=== PATIENT | female | born 1970 ===

== ENCOUNTER 2022-07-24 10:57 | Inpatient (IN) ==
[2022-07-24] MEDS ORDERED: IOPAMIDOL 100 ML BOTTLE IV ONE (10:58)
--- NOTE | 2022-07-24 11:00 | Emergency Department Note ---
HPI General Chief complaint: Shortness of Breath/Dyspnea Stated complaint: pneumonia Time Seen by Provider: 07/24/22 10:59 History of Present Illness HPI Narrative: Narrative: Patient is a 51-year-old female with a history of hypertension who presents to the emergency department from [facility] due to pneumonia and an elevated D- dimer. Patient states that she has had symptoms of feeling unwell, chills, cough, and shortness of breath for days. She states that when she was young she had a bad pneumonia for which she had to be admitted, so decided to be checked out. She was seen at [facility] where she was found to have a left lower lobe pneumonia and an elevated white blood cell count. She was also found to have an elevated D-dimer, so was sent to the emergency department for CT angio chest evaluation. She denies any other concerns at this time. Related Data Home Medications Medication Instructions Recorded Confirmed albuterol sulfate 90 mcg/actuation 90 mcg inhalation PRN PRN athsma 07/24/22 07/24/22 aerosol inhaler (Ventolin HFA) losartan 100 mg tablet 100 mg PO QDAY 07/24/22 07/24/22 sertraline 25 mg tablet 25 mg PO QDAY 07/24/22 07/24/22 Allergies Allergy/AdvReac Type Severity Reaction Status Date / Time Penicillins Allergy Unknown Unknown Verified 07/24/22 15:51 Review of Systems ROS ROS Narrative: Narrative: Constitutional: Reports chills; Denies fever or weakness Eyes: Denies eye pain or vision change ENT ED: Denies throat pain or rhinorrhea Cardiovascular: Reports chest pain; Denies dyspnea on exertion, orthopnea or edema Respiratory: Reports shortness of breath and cough Gastrointestinal: Denies abdominal pain, nausea, vomiting, diarrhea, constipation, hematochezia or melena Musculoskeletal: Denies back pain or myalgia Integumentary: Denies rash or lesions Neurological: Denies headache, weakness or confusion [facility] Narrative Patient History Narrative: Narrative: Medical/Surgical/Family History All Active Problems (Updated 07/24/22 @ 15:56 by Nii Landaverde MD) Pneumonia (Acute) Community acquired pneumonia (Acute) Sepsis (Acute) Exam Narrative Narrative: Narrative: General General appearance: Present alert and in no apparent distress; Absent anxious, appears intoxicated or sleepy Head Head: Present atraumatic and normocephalic Eye Eye: Present EOMI; Absent scleral icterus or nystagmus ENT ENT: Present mucous membranes moist; Absent nasal congestion Neck Neck: Present full ROM; Absent tenderness Chest Chest: Present normal inspection and symmetric chest wall rise; Absent tenderness Respiratory Respiratory: Present decreased breath sounds (Left lower lung field); Absent respiratory distress, rales/crackles, wheezes, stridor or accessory muscle use Cardiovascular Cardiovascular: Present normal rhythm, tachycardia and normal heart sounds Adbominal Abdominal: Present soft; Absent distention Extremities Extremities: Present normal inspection and full ROM; Absent tenderness, pedal edema or pretibial edema Back Back: Present normal inspection and full ROM Neurological Neurological: Present alert, oriented X3 and reflexes normal Psychiatric Psychiatric: Present normal affect and normal mood Skin Skin: Present warm (WNL), dry and normal color Course Vital Signs Vital signs: Vital Signs Temperature 98.6 F 07/24/22 10:59 Pulse Rate 98 H 07/24/22 10:59 Respiratory Rate 22 07/24/22 10:59 Blood Pressure 96/62 07/24/22 10:59 Pulse Oximetry (%) 98 07/24/22 10:59 Oxygen Delivery Method Room Air 07/24/22 10:59 Temperature 98.6 F 07/24/22 10:59 Pulse Rate 111 H 07/24/22 15:30 Respiratory Rate 18 07/24/22 15:01 Blood Pressure 115/68 07/24/22 15:16 Pulse Oximetry (%) 96 07/24/22 15:30 Oxygen Delivery Method Room Air 07/24/22 12:39 [facility] MDM Narrative Medical decision making narrative: Narrative: Patient is a 51-year-old female who presents to the emergency department due to elevated D-dimer, but in the setting of pneumonia. Patient meets SIRS criteria based on heart rate and elevated white blood cell count, but also has a source of pneumonia, so has sepsis secondary to pneumonia. For this reason labs have been ordered. We have also given her ceftriaxone and azithromycin. Patient is receiving fluids. Patient's white blood cell count is 16 here. Her lactate is 3.4. Patient's CT scan is negative for pulmonary embolus, but does show a large dense consolidation in the left lower lobe. I have spoken to Dr. Wong regarding thi s patient and he has agreed to see and evaluate patient for admission. Lab Data 07/24/22 11:45 Labs: Lab Results 07/24/22 07/24/22 07/24/22 Range/Units 11:45 11:45 12:00 WBC TNP RBC TNP Hgb TNP Hct TNP POC Hct (36-48) MCV TNP MCH TNP MCHC TNP RDW TNP Plt Count TNP MPV TNP Immature Gran % (Auto) TNP Neut % (Auto) TNP Lymph % (Auto) TNP Young % (Auto) TNP Eos % (Auto) TNP Baso % (Auto) TNP Lymph # (Auto) TNP Young # (Auto) TNP Eos # (Auto) TNP Baso # (Auto) TNP Immature Gran # TNP Absolute Neutrophils TNP Differential Comment TNP POC VBG pH 7.42 (7.32-7.42) POC VBG pCO2 at Temp 36.9 L (41-51) POC VBG pO2 40 (25-40) POC VBG HCO3 24.2 (24-28) POC VBG Total CO2 25.0 (25-29) POC Venous O2 Sat 76.0 H (40-70) POC VBG Base Excess 0 (-2-2) VBG Lactic Acid 3.4 H (0.5-2) POC Sodium (133-145) POC Potassium (3.3-5.1) POC Chloride (96-108) POC Total CO2 (22-30) POC BUN (6-20) POC Creatinine (0.6-1.2) POC Glucose (70-105) POC WB Ioniz Calcium (1.16-1.32) Procalcitonin 4.15 H (<0.10) ng/mL 07/24/22 07/24/22 07/24/22 Range/Units 12:12 13:35 14:31 WBC 16.5 H RBC 3.40 L Hgb 10.4 L Hct 30.8 L POC Hct 37.0 (36-48) MCV 90.6 MCH 30.6 MCHC 33.8 RDW 12.3 Plt Count 204 MPV 9.8 Immature Gran % (Auto) 1.2 H Neut % (Auto) 89.1 H Lymph % (Auto) 6.5 L Young % (Auto) 3.0 Eos % (Auto) 0 Baso % (Auto) 0.2 Lymph # (Auto) 1.07 L Young # (Auto) 0.50 Eos # (Auto) 0 Baso # (Auto) 0.03 Immature Gran # 0.19 H Absolute Neutrophils 14.72 H Differential Comment POC VBG pH 7.29 L (7.32-7.42) POC VBG pCO2 at Temp 40.9 L (41-51) POC VBG pO2 19 L (25-40) POC VBG HCO3 19.7 L (24-28) POC VBG Total CO2 21.0 L (25-29) POC Venous O2 Sat 24.0 L (40-70) POC VBG Base Excess -7.0 L (-2-2) VBG Lactic Acid 3.0 H (0.5-2) POC Sodium 136 (133-145) POC Potassium 3.5 (3.3-5.1) POC Chloride 100 (96-108) POC Total CO2 23.0 (22-30) POC BUN 14 (6-20) POC Creatinine 0.9 (0.6-1.2) POC Glucose 129 H (70-105) POC WB Ioniz Calcium 1.07 L (1.16-1.32) Procalcitonin (<0.10) ng/mL EKG Data EKG #1: EKG attestation: Yes I reviewed and interpreted this EKG. EKG results narrative: Normal sinus rhythm with a rate of 96, normal axis, MD 129, QRS of 85, QTc of 425, T wave flattening in leads III, aVL, and aVF, and absence of ST elevation or depression. 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) Discharge Date/Time: 07/24/22 15:37
[2022-07-24] MEDS ORDERED: KETOROLAC 30 MG/ML VIAL IV ONE (11:34)
[2022-07-24] MEDS ORDERED: LACTATED RINGERS 1,000 ML IV ONE (11:34)
[2022-07-24] MEDS ORDERED: AZITHROMYCIN 500 MG in DEXTROSE 5% IN WATER 250 ML IV ONE (11:38)
[2022-07-24] MEDS ORDERED: cefTRIAXone 1 GM VIAL IV ONE (11:38)
--- NOTE | 2022-07-24 12:07 | EKG ---
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 Measurements Intervals Ramah Rate: 96 P: 55 CT: 129 QRS: 79 QRSD: 85 T: 45 QT: 336 QTc: 425 Interpretive Statements Sinus rhythm Electronically Signed On 07-24-2022 12:07:29 PST by Pilo Henry M.D. /store/M0/[id number]
[2022-07-24 12:15] LABS: POC Calcium, Ionized 1.07 (1.16-1.32); POC Creatinine 0.9 (0.6-1.2); POC Potassium 3.5 (3.3-5.1)
[2022-07-24] MEDS ORDERED: 0.9 % SODIUM CHLORIDE 1,000 ML IV ONE (12:47)
--- NOTE | 2022-07-24 13:50 | Cat Scan Report ---
CLINICAL INFORMATION: Chest pain and shortness of breath COMPARISON: None. TECHNIQUE: 80ml of Isovue-370 were injected intravenously. Using SmartPrep to maximize pulmonary artery opacification, .625mm helical slices were obtained from the lung apices through the lung bases. Following reconstruction, 2.5 mm sagittal, coronal, and axial reformations were processed. The exam was reviewed at mediastinal, lung, and bone windows. The exam was performed using radiation dose optimization techniques including, but not limited to, automated exposure control, adjustment of the mA and/or kV according to patient size and use of iterative reconstruction technique. FINDINGS: Pulmonary parenchymal windows show large densely consolidated left lower lobe infiltrate-likely pneumonia. There is mild focal pleural parenchymal fibrosis in the right lung apex.. Pleural spaces are unremarkable-no effusions. Mediastinal windows show the heart is grossly normal in size and configuration. The pulmonary arteries are normal diameter and well-opacified without evidence of embolus. Thoracic aorta is also normal diameter and well-opacified. There is no adenopathy in the mediastinal, hilar or axillary regions. Esophagus is grossly normal. The thyroid is unremarkable. Bones and soft tissues the chest wall are normal. Images through the superior abdomen are unremarkable. IMPRESSION: Large densely consolidated left lower lobe infiltrate-likely pneumonia. Suggest plain film follow-up in 3-4 weeks, after antibiotic therapy, to ensure complete clearance No evidence of pulmonary embolus Interpreted and Authenticated by: Pilo Flores 07/24/22
[2022-07-24 14:28] LABS: Basophils # (Auto) 0.03 K/mcL (0.00-0.30); Basophils % (Auto) 0.2 % (0.0-2.0); Eosinophils # (Auto) 0 K/mcL (0.00-0.70); Eosinophils % (Auto) 0 % (0.0-7.0); Hematocrit 30.8 % (34.1-44.9); Hemoglobin 10.4 g/dL (11.2-15.7); Lymphocytes # (Auto) 1.07 K/mcL (1.50-4.80); Lymphocytes % (Auto) 6.5 % (15.5-49.0); Mean Cell Volume 90.6 fL (80.0-100.0); Mean Corpuscular HGB Conc 33.8 g/dL (31.0-36.0); Mean Platelet Volume 9.8 fL (8.8-12.5); Platelet Count 204 K/mcL (140-440); Red Cell Distribution Width 12.3 % (11.5-14.5); WBC 16.5 K/mcL (4.5-11.0)
--- NOTE | 2022-07-24 15:28 | Internal Med History&Physical ---
HPI History of Present Illness Patient information: Note initiated : 07/24/22 at 3:19 pm Service Date, if different from initiated Date: [] Patient: Charley Batista a 51 y/o F admitted on for pneumonia. Chief Complaint: [SOB] Chief complaint: SOB History of present illness: Ms. Batista is a 51 year old F with a past medical history significant for mild intermittent asthma, and hypertension who presents to the hospital with 24-hour history of rigors, shortness of breath and pleuritic chest pain. The patient states that she was at work yesterday when she began to develop rigors. She also developed left-sided chest pain with deep inspiration. She was complaining of what is described as splinting. She went home and continued to feel unwell. At 2 AM, she had an episode of nausea and emesis. This morning, she went to see a provider at urgent care. She was found to have a significantly elevated white blood cell count of 24,000 and was advised to come to the ER for further management and evaluation. On arrival she was hemodynamically stable and afebrile however was noted to be slightly hypotensive and tachycardic. CTA was negative for PE but did reveal large dense consolidation in the left lower lobe. Of note, the patient states that this is her third pneumonia in her lifetime. She denies any history of immunodeficiency. She denies sick contacts. She states that she is vaccinated for influenza and SARS-CoV-2. Review of Systems All systems: reviewed and no additional remarkable complaints except as stated Constitutional Constitutional: Present as per HPI EENT Eyes: Present as per HPI; Absent blurry vision Cardiovascular Cardiovascular: Present as per HPI; Absent chest pain, dyspnea, dyspnea on exertion, leg edema or palpatations Respiratory Respiratory: Present as per HPI; Absent cough, dyspnea, dyspnea on exertion, wheezing or stridor Gastrointestinal Gastrointestinal: Present as per HPI; Absent abdominal pain, diarrhea, dysphagia, hematemesis, melena, nausea or vomiting Musculoskeletal Musculoskeletal: Present as per HPI; Absent joint swelling, limited range of motion, muscle cramps, muscle weakness or myalgias Integumentary Integumentary: Present as per HPI; Absent erythema, new lesions, rash or wounds Neurological Neurological: Present as per HPI; Absent abnormal gait, behavioral changes, focal weakness, headache(s), loss of vision, numbness, sensory deficit or syncope Endocrine Endocrine: Absent change in body appearance, fatigue or heat intolerance Hematologic/Lymphatic Hematologic/Lymphatic: Present as per HPI PFSH PFSH All Active Problems (Updated 07/24/22 @ 15:26 by Silvia Wong MD) Community acquired pneumonia (Acute) Sepsis (Acute) Social History smoking status: Never smoker MEDS/ALLERGIES Home Medications and Allergies Home Medications Medication Instructions Recorded Confirmed Type albuterol sulfate 90 mcg/actuation 90 mcg inhalation PRN athsma 07/24/22 History aerosol inhaler losartan 100 mg tablet 100 mg PO QDAY 07/24/22 07/24/22 History sertraline 25 mg tablet 25 mg PO QDAY 07/24/22 07/24/22 History Allergies Allergy/AdvReac Type Severity Reaction Status Date / Time Penicillins Allergy Unknown Verified 07/24/22 11:02 EXAM Constitutional Vitals: Temp Pulse Resp BP Pulse Ox O2 Del Method 98.6 F 99 H 18 104/68 98 Room Air 07/24/22 10:59 07/24/22 14:34 07/24/22 14:16 07/24/22 14:16 07/24/22 14:34 07/24/22 12:39 General appearance: average body habitus Head Head exam: Present atraumatic, normal inspection and normocephalic Eye Eye exam: Present EOMI, normal appearance and PERRL; Absent conjunctival injection ENT ENT exam: Present mucous membranes dry and normal exam Neck Neck exam: Present full ROM; Absent lymphadenopathy Respiratory Respiratory exam: Present decreased breath sounds and rhonchi; Absent respiratory distress or wheezes Cardiovascular Cardiovascular exam: Present normal rate and rhythm and RRR; Absent JVD GI/Abdominal GI/Abdominal exam: Present normal bowel sounds and soft; Absent diminished bowel sounds, distended, guarding, mass, rebound or tenderness Neurological Exam Neurological exam: Present alert, CN II-XII intact and oriented X3 Psychiatric Psychiatric exam: Present normal affect and normal mood Skin Skin exam: Present intact and warm; Absent erythema, pallor, petechiae or rash DATA Data Completed and Pending Labs: Labs from last 24 hours 07/24/22 07/24/22 07/24/22 14:31 13:35 12:12 WBC 16.5 H RBC 3.40 L Hgb 10.4 L Hct 30.8 L POC Hct 37.0 MCV 90.6 MCH 30.6 MCHC 33.8 RDW 12.3 Plt Count 204 MPV 9.8 Immature Gran % (Auto) 1.2 H Neut % (Auto) 89.1 H Lymph % (Auto) 6.5 L Douglas % (Auto) 3.0 Eos % (Auto) 0 Baso % (Auto) 0.2 Lymph # (Auto) 1.07 L Douglas # (Auto) 0.50 Eos # (Auto) 0 Baso # (Auto) 0.03 Immature Gran # 0.19 H Absolute Neutrophils 14.72 H Differential Comment POC VBG pH 7.29 L POC VBG pCO2 at Temp 40.9 L POC VBG pO2 19 L POC VBG HCO3 19.7 L POC VBG Total CO2 21.0 L POC Venous O2 Sat 24.0 L POC VBG Base Excess -7.0 L VBG Lactic Acid 3.0 H POC Sodium 136 POC Potassium 3.5 POC Chloride 100 POC Total CO2 23.0 POC BUN 14 POC Creatinine 0.9 POC Glucose 129 H POC WB Ioniz Calcium 1.07 L Procalcitonin 07/24/22 07/24/22 07/24/22 12:00 11:45 11:45 WBC TNP RBC TNP Hgb TNP Hct TNP POC Hct MCV TNP MCH TNP MCHC TNP RDW TNP Plt Count TNP MPV TNP Immature Gran % (Auto) TNP Neut % (Auto) TNP Lymph % (Auto) TNP Douglas % (Auto) TNP Eos % (Auto) TNP Baso % (Auto) TNP Lymph # (Auto) TNP Douglas # (Auto) TNP Eos # (Auto) TNP Baso # (Auto) TNP Immature Gran # TNP Absolute Neutrophils TNP Differential Comment TNP POC VBG pH 7.42 POC VBG pCO2 at Temp 36.9 L POC VBG pO2 40 POC VBG HCO3 24.2 POC VBG Total CO2 25.0 POC Venous O2 Sat 76.0 H POC VBG Base Excess 0 VBG Lactic Acid 3.4 H POC Sodium POC Potassium POC Chloride POC Total CO2 POC BUN POC Creatinine POC Glucose POC WB Ioniz Calcium Procalcitonin 4.15 H A/P Assessment and plan (1) Sepsis: Status: Acute (2) Community acquired pneumonia: Status: Acute Narrative A/P Narrative: The patient's presentation is consistent with sepsis as she is tachycardic, slightly hypotensive with an elevated white blood cell count of 17,000. Of note there is evidence of lactic acidosis. She was found to have a lactic acid of 3.0. Imaging confirmed left lower lobe pneumonia. Blood cultures are pending. VBG was concerning for hypoxemia. When I evaluated her in the ER, her O2 sat was around 86% on ambient air. We will start supplemental O2, and with a history of obstructive lung disease, start duo nebs and Pulmicort. For her pleuritic chest pain, we will continue standing dose acetaminophen and Toradol. Her home antihypertensives which include losartan will be held. Time Spent With Patient Time: Total time spent is greater than 50% in coordination of care (as documented) at patient's floor/unit and/or counseling patient: Initial: Total time with patient: 75 - 90 minutes
[2022-07-24] MEDS ORDERED: ONDANSETRON 4 MG/2 ML VIAL IV PRN (15:48)
[2022-07-24] MEDS ORDERED: cefTRIAXone 1 GM in DEXTROSE 5% IN WATER 50 ML IV SCH (15:48)
[2022-07-24 16:00] LABS: Neutrophils % (Auto) 89.1 % (38.0-78.0)
[2022-07-24] MEDS ORDERED: guaiFENesin/DEXTROMETHORPHAN 5ML UD CUP PO PRN (16:10)
[2022-07-24] MEDS ORDERED: BENZONATATE 100 MG CAPSULE PO PRN (16:11)
[2022-07-24] MEDS: ACETAMINOPHEN 325 MG TABLET PO SCH ×2 (16:13→23:34)
[2022-07-24] MEDS: LACTATED RINGERS 1,000 ML IV SCH (16:13)
[2022-07-24 16:38] LABS: Immunoglobulin M 111.5 mg/dL (40.0-230.0)
[2022-07-24] MEDS: KETOROLAC 30 MG/ML VIAL IV SCH ×2 (18:07→23:38)
[2022-07-24] MEDS: BUDESONIDE 0.5 MG/2 ML AMPUL.NEB NEB SCH (19:31)
[2022-07-24] MEDS: DOCUSATE SODIUM 100 MG CAPSULE PO SCH (20:05)
[2022-07-24] MEDS: SENNOSIDES 1 TABLET PO SCH (20:05)
[2022-07-24] MEDS: 0.9 % SODIUM CHLORIDE 10 ML SYRINGE IV SCH (22:21)
[2022-07-25] MEDS: LACTATED RINGERS 1,000 ML IV SCH ×3 (02:48→23:00)
[2022-07-25] MEDS: 0.9 % SODIUM CHLORIDE 10 ML SYRINGE IV SCH ×3 (05:45→20:24)
[2022-07-25] MEDS: KETOROLAC 30 MG/ML VIAL IV SCH ×3 (05:49→17:30)
[2022-07-25 07:47] LABS: Basophils # (Auto) 0.01 K/mcL (0.00-0.30); Basophils % (Auto) 0.1 % (0.0-2.0); Eosinophils # (Auto) 0.01 K/mcL (0.00-0.70); Eosinophils % (Auto) 0.1 % (0.0-7.0); Hematocrit 32.1 % (34.1-44.9); Lymphocytes # (Auto) 0.99 K/mcL (1.50-4.80); Lymphocytes % (Auto) 5.2 % (15.5-49.0); Mean Cell Volume 92.2 fL (80.0-100.0); Mean Corpuscular HGB Conc 34.3 g/dL (31.0-36.0); Mean Platelet Volume 10.1 fL (8.8-12.5); Monocytes # (Auto) 0.22 K/mcL (0.10-0.90); Monocytes % (Auto) 1.2 % (1.0-12.0); Neutrophils % (Auto) 91.1 % (38.0-78.0); Platelet Count 199 K/mcL (140-440); RBC 3.48 M/mcL (3.59-5.38); Red Cell Distribution Width 12.6 % (11.5-14.5); WBC 18.9 K/mcL (4.5-11.0)
[2022-07-25 08:07] LABS: Blood Urea Nitrogen 18 mg/dL (6-20); Calcium 7.8 mg/dL (8.6-10.4); Carbon Dioxide 21 mmol/L (22-30); Chloride 104 mmol/L (96-108); Glomerular Filtration Rate 85; Glucose 89 mg/dL (70-105)
[2022-07-25] MEDS ORDERED: LACTATED RINGERS 1,000 ML IV ONE (08:27)
[2022-07-25] MEDS: ENOXAPARIN 40 MG/0.4 ML SYRINGE SQ SCH (08:36)
[2022-07-25] MEDS: DOCUSATE SODIUM 100 MG CAPSULE PO SCH ×2 (08:37→20:22)
[2022-07-25] MEDS: AZITHROMYCIN 250 MG TABLET PO SCH (08:37)
[2022-07-25] MEDS: ACETAMINOPHEN 325 MG TABLET PO SCH ×2 (08:52→15:35)
[2022-07-25] MEDS: cefTRIAXone 1 GM VIAL IV SCH (08:55)
[2022-07-25] MEDS: BUDESONIDE 0.5 MG/2 ML AMPUL.NEB NEB SCH ×2 (09:24→19:12)
[2022-07-25] MEDS: IPRATROPIUM/ALBUTEROL 3 ML AMPUL.NEB NEB SCH (09:26)
--- NOTE | 2022-07-25 12:50 | Internal Med Progress Note ---
SUBJECTIVE Subjective Patient information: Note initiated : 07/25/22 at 12:48 pm Service Date, if different from initiated Date: [] Patient: Charley Batista 51 y/o F admitted on 07/24/22 for Pneumonia. Chief Complaint: [Chest pain, SOB] Principal diagnosis: Left lobar pneumonia Interval history: The patient was resting in bed. She states that she was not able to sleep much. She states that her pleuritic chest pain has improved. Constitutional Vitals: Vital Signs Temp Pulse Resp BP Pulse Ox O2 Del Method 98.4 F 90 17 98/68 95 Room Air 07/25/22 12:00 07/25/22 12:00 07/25/22 12:00 07/25/22 12:00 07/25/22 12:00 07/25/22 12:00 Period Temp Pulse Resp BP Sys/Henley Pulse Ox O2 Del Method O2 Flow Rate Last 24 Hr 97.3 F-102.2 F 79-122 16-24 82-115/61-68 92-99 Room Air-Room Air Intake and Output 07/25/22 07/25/22 07/25/22 03:59 11:59 19:59 Intake Total 1570 1999 Output Total 250 Balance 1320 1999 Intake & Output: Intake & Output 07/25/22 07/25/22 07/25/22 03:59 11:59 19:59 Intake Total 1570 2000 Output Total 250 Balance 1320 1999 Intake: IV 1000 2000 Lactated Ringers 1,000 ml @ 1000 2000 Wide Open IV BOLUS ONE Rx#: [id number] Oral 570 Output: Void Amount 250 Other: Urine Appearance Clear Urine Color Yellow # Voids 3 # Bowel Movements 1 Head Head exam: Present atraumatic and normal inspection Eye Eye exam: Present normal appearance ENT ENT exam: Present mucous membranes moist, normal exam and normal external ear exam Neck Neck exam: Present normal inspection Respiratory Respiratory exam: Present decreased breath sounds and rhonchi; Absent accessory muscle use or respiratory distress Cardiovascular Cardiovascular exam: Present normal rate and rhythm GI/Abdominal GI/Abdominal exam: Present normal bowel sounds Back Exam Back exam: Present normal inspection Neurological Exam Neurological exam: Present alert and oriented X3 Skin Skin exam: Present intact and warm OBJ DATA Labs 07/25/22 05:25 07/25/22 05:25 Labs: Abnormal Lab Results 01/07/25/22 07/25/22 08:25 05:25 05:25 WBC 18.9 H RBC 3.48 L Hgb 11.0 L Hct 32.1 L Immature Gran % (Auto) 2.3 H Neut % (Auto) 91.1 H Lymph % (Auto) 5.2 L Lymph # (Auto) 0.99 L Immature Gran # 0.44 H Absolute Neutrophils 17.27 H POC VBG pH POC VBG pCO2 at Temp POC VBG pO2 POC VBG HCO3 POC VBG Total CO2 POC Venous O2 Sat POC VBG Base Excess VBG Lactic Acid 2.8 H 2.6 H Carbon Dioxide 21 L POC Glucose Calcium 7.8 L POC WB Ioniz Calcium C-Reactive Protein 28.80 H Procalcitonin IgA 07/24/22 07/24/22 07/24/22 14:31 14:25 13:35 WBC 16.5 H RBC 3.40 L Hgb 10.4 L Hct 30.8 L Immature Gran % (Auto) 1.2 H Neut % (Auto) 89.1 H Lymph % (Auto) 6.5 L Lymph # (Auto) 1.07 L Immature Gran # 0.19 H Absolute Neutrophils 14.72 H POC VBG pH 7.29 L POC VBG pCO2 at Temp 40.9 L POC VBG pO2 19 L POC VBG HCO3 19.7 L POC VBG Total CO2 21.0 L POC Venous O2 Sat 24.0 L POC VBG Base Excess -7.0 L VBG Lactic Acid 3.0 H Carbon Dioxide POC Glucose Calcium POC WB Ioniz Calcium C-Reactive Protein Procalcitonin IgA 460 H 07/24/22 07/24/22 07/24/22 12:12 12:00 11:45 WBC RBC Hgb Hct Immature Gran % (Auto) Neut % (Auto) Lymph % (Auto) Lymph # (Auto) Immature Gran # Absolute Neutrophils POC VBG pH POC VBG pCO2 at Temp 36.9 L POC VBG pO2 POC VBG HCO3 POC VBG Total CO2 POC Venous O2 Sat 76.0 H POC VBG Base Excess VBG Lactic Acid 3.4 H Carbon Dioxide POC Glucose 129 H Calcium POC WB Ioniz Calcium 1.07 L C-Reactive Protein Procalcitonin 4.15 H IgA Meds: Medications Acetaminophen (Acetaminophen 325 Mg Tablet) 1,000 mg PO Q8H [facility]; Protocol Last Admin: 07/25/22 08:52 Dose: 1,000 mg Albuterol/Ipratropium (Ipratropium/Albuterol 3 Ml Ampul.Neb) 3 ml NEB Q6HP [facility] Last Admin: 07/25/22 09:26 Dose: 3 ml Azithromycin (Azithromycin 250 Mg Tablet) 250 mg PO DAILY [facility]; Protocol Stop: 07/28/22 09:01 Last Admin: 07/25/22 08:37 Dose: 250 mg Benzonatate (Benzonatate 100 Mg Capsule) 100 mg PO BIDP PRN PRN Reason: Cough Last Admin: 07/24/22 18:08 Dose: 100 mg Budesonide (Budesonide 0.5 Mg/2 Ml Ampul.Neb) 0.5 mg NEB Q12 [facility] Last Admin: 07/25/22 09:24 Dose: 0.5 mg Ceftriaxone Sodium (Ceftriaxone 1 Gm Vial) 1 gm IV Q24H [facility] Last Admin: 07/25/22 08:55 Dose: 1 gm Docusate Sodium (Docusate Sodium 100 Mg Capsule) 100 mg PO BID [facility] Last Admin: 07/25/22 08:37 Dose: 100 mg Enoxaparin Sodium (Enoxaparin 40 Mg/0.4 Ml Syringe) 40 mg SQ DAILY [facility] Last Admin: 07/25/22 08:36 Dose: 40 mg Guaifenesin (Guaifenesin/Dextromethorphan 5ml Ud Cup) 10 ml PO Q4HP PRN PRN Reason: Cough Lactated Ringer's (Lactated Ringers) 1,000 mls @ 100 mls/hr IV .Q10H [facility] Last Admin: 07/25/22 12:05 Dose: 100 mls/hr Ketorolac Tromethamine (Ketorolac 30 Mg/Ml Vial) 30 mg IV Q6 [facility] Stop: 07/26/22 12:01 Last Admin: 07/25/22 12:30 Dose: 30 mg Ondansetron HCl (Ondansetron 4 Mg/2 Ml Vial) 4 mg IV Q6HP PRN PRN Reason: Nausea And Vomiting Senna (Sennosides 1 Tablet) 2 tab PO HS [facility] Last Admin: 07/24/22 20:05 Dose: 2 tab Sodium Chloride (0.9 % Sodium Chloride 10 Ml Syringe) 10 ml IV Q8 [facility] Last Admin: 07/25/22 12:05 Dose: Not Given A/P Assessment and plan (1) Sepsis: Status: Acute (2) Community acquired pneumonia: Status: Acute Narrative A/P Narrative: The patient's presentation is consistent with sepsis as she is tachycardic, slightly hypotensive with an elevated white blood cell count of 17,000. Of note there is evidence of lactic acidosis. She was found to have a lactic acid of 3.0. Imaging confirmed left lower lobe pneumonia. Blood cultures are pending. VBG was concerning for hypoxemia. When I evaluated her in the ER, her O2 sat was around 86% on ambient air. We will start supplemental O2, and with a history of obstructive lung disease, start duo nebs and Pulmicort. For her pleuritic chest pain, we will continue standing dose acetaminophen and Toradol. Her home antihypertensives which include losartan will be held. 07/25: The patient's white blood cell count has gone up slightly to 18.9. CRP is elevated at 28.8. Lactic acid has come down to 2.6. Her blood pressure was 89/66 this morning and she received an LR bolus. We will repeat her lactic aci d. Continue antibiotic therapy as above. Time Spent With Patient Time: Total time spent is greater than 50% in coordination of care (as documented) at patient's floor/unit and/or counseling patient: QUALITY VTE Deep Vein Thrombosis/Pulmonary Embolism Present on Admission: No
[2022-07-25] MEDS: SENNOSIDES 1 TABLET PO SCH (20:22)
[2022-07-26] MEDS: ACETAMINOPHEN 325 MG TABLET PO SCH ×4 (00:02→23:40)
[2022-07-26] MEDS: LACTATED RINGERS 1,000 ML IV SCH ×2 (00:04→08:45)
[2022-07-26] MEDS: KETOROLAC 30 MG/ML VIAL IV SCH ×3 (00:10→12:34)
[2022-07-26] MEDS: 0.9 % SODIUM CHLORIDE 10 ML SYRINGE IV SCH ×3 (05:16→23:40)
[2022-07-26 06:31] LABS: Basophils # (Auto) 0.09 K/mcL (0.00-0.30); Basophils % (Auto) 0.5 % (0.0-2.0); Eosinophils # (Auto) 0.19 K/mcL (0.00-0.70); Eosinophils % (Auto) 1.1 % (0.0-7.0); Hematocrit 29.2 % (34.1-44.9); Hemoglobin 10.1 g/dL (11.2-15.7); Lymphocytes # (Auto) 1.56 K/mcL (1.50-4.80); Lymphocytes % (Auto) 8.7 % (15.5-49.0); Mean Cell Volume 90.7 fL (80.0-100.0); Mean Corpuscular HGB Conc 34.6 g/dL (31.0-36.0); Monocytes # (Auto) 0.42 K/mcL (0.10-0.90); Monocytes % (Auto) 2.4 % (1.0-12.0); Neutrophils % (Auto) 86.6 % (38.0-78.0); Platelet Count 205 K/mcL (140-440); RBC 3.22 M/mcL (3.59-5.38); Red Cell Distribution Width 12.6 % (11.5-14.5)
[2022-07-26 07:25] LABS: WBC 17.9 K/mcL (4.5-11.0)
[2022-07-26] MEDS: DOCUSATE SODIUM 100 MG CAPSULE PO SCH ×2 (08:05→23:10)
[2022-07-26] MEDS: AZITHROMYCIN 250 MG TABLET PO SCH (08:05)
[2022-07-26] MEDS: ENOXAPARIN 40 MG/0.4 ML SYRINGE SQ SCH (08:05)
[2022-07-26] MEDS: cefTRIAXone 1 GM VIAL IV SCH (08:05)
[2022-07-26] MEDS: IPRATROPIUM/ALBUTEROL 3 ML AMPUL.NEB NEB SCH (08:19)
[2022-07-26] MEDS: BUDESONIDE 0.5 MG/2 ML AMPUL.NEB NEB SCH ×2 (08:20→23:41)
[2022-07-26] MEDS ORDERED: VANCOMYCIN PER PHARMACY IV SCH (09:00)
[2022-07-26] MEDS: CEFEPIME 2 GM VIAL IV SCH ×3 (11:31→22:09)
[2022-07-26] MEDS: VANCOMYCIN 500 MG in 0.9 % SODIUM CHLORIDE 100 ML IV SCH ×2 (11:38→22:35)
--- NOTE | 2022-07-26 12:47 | Internal Med Progress Note ---
SUBJECTIVE Subjective Patient information: Note initiated : 07/26/22 at 12:45 pm Service Date, if different from initiated Date: [] Patient: Charley Batista 51 y/o F admitted on 07/24/22 for Pneumonia. Chief Complaint: [Pleuritic CP] Principal diagnosis: Left lobar pneumonia Interval history: The patient states that she is feeling much better. She did have a good night sleep. She denies shortness of breath. She is calm, cooperative and able to speak in full sentences. Constitutional Vitals: Vital Signs Temp Pulse Resp BP Pulse Ox O2 Del Method O2 Flow Rate 98 F 66 16 112/76 94 Room Air 0 07/26/22 11:55 07/26/22 08:20 07/26/22 11:55 07/26/22 11:55 07/26/22 11:55 07/26/22 11:55 07/25/22 20:00 Period Temp Pulse Resp BP Sys/Henley Pulse Ox O2 Del Method O2 Flow Rate Last 24 Hr 97.4 F-99.1 F 66-90 16-20 104-112/67-82 93-98 Room Air-Room Air 0 Intake and Output 07/26/22 07/26/22 07/26/22 03:59 11:59 19:59 Intake Total 1400 1300 100 Output Total 450 Balance 1400 850 100 Weight 56.699 kg Intake & Output: Intake & Output 07/26/22 07/26/22 07/26/22 03:59 11:59 19:59 Intake Total 1400 1300 100 Output Total 450 Balance 1400 850 100 Weight 56.699 kg Intake: IV 1000 1000 100 Lactated Ringers 1,000 ml @ 100 1000 1000 mls/hr IV .Q10H [facility] Rx#: [id number] Vancomycin 500 mg In Sodium 100 Chloride 0.9% 100 ml @ 100 mls/ hr IV Q12H [facility] Rx#:[id number] Oral 400 300 Output: Void Amount 450 Other: Urine Color Dark Yellow Urine Odor Normal Stool Consistency Loose # [place] 0 Head Head exam: Present atraumatic and normal inspection Eye Eye exam: Present normal appearance ENT ENT exam: Present mucous membranes moist, normal exam and normal external ear exam Neck Neck exam: Present normal inspection Respiratory Respiratory exam: Present decreased breath sounds and rhonchi; Absent accessory muscle use or respiratory distress Cardiovascular Cardiovascular exam: Present normal rate and rhythm GI/Abdominal GI/Abdominal exam: Present normal bowel sounds Back Exam Back exam: Present normal inspection Neurological Exam Neurological exam: Present alert and oriented X3 Skin Skin exam: Present intact and warm OBJ DATA Labs 07/26/22 05:23 07/25/22 05:25 Labs: Abnormal Lab Results 07/26/22 07/25/22 07/25/22 05:23 12:57 08:25 WBC 17.9 H RBC 3.22 L Hgb 10.1 L Hct 29.2 L Immature Gran % (Auto) 0.7 H Neut % (Auto) 86.6 H Lymph % (Auto) 8.7 L Lymph # (Auto) Immature Gran # 0.12 H Absolute Neutrophils 15.49 H POC VBG pH POC VBG pCO2 at Temp POC VBG pO2 POC VBG HCO3 POC VBG Total CO2 POC Venous O2 Sat POC VBG Base Excess VBG Lactic Acid 3.2 H 2.8 H Carbon Dioxide POC Glucose Calcium POC WB Ioniz Calcium C-Reactive Protein Procalcitonin IgA 07/25/22 07/25/22 07/24/22 05:25 05:25 14:31 WBC 18.9 H RBC 3.48 L Hgb 11.0 L Hct 32.1 L Immature Gran % (Auto) 2.3 H Neut % (Auto) 91.1 H Lymph % (Auto) 5.2 L Lymph # (Auto) 0.99 L Immature Gran # 0.44 H Absolute Neutrophils 17.27 H POC VBG pH 7.29 L POC VBG pCO2 at Temp 40.9 L POC VBG pO2 19 L POC VBG HCO3 19.7 L POC VBG Total CO2 21.0 L POC Venous O2 Sat 24.0 L POC VBG Base Excess -7.0 L VBG Lactic Acid 2.6 H 3.0 H Carbon Dioxide 21 L POC Glucose Calcium 7.8 L POC WB Ioniz Calcium C-Reactive Protein 28.80 H Procalcitonin IgA 07/24/22 07/24/22 07/24/22 14:25 13:35 12:12 WBC 16.5 H RBC 3.40 L Hgb 10.4 L Hct 30.8 L Immature Gran % (Auto) 1.2 H Neut % (Auto) 89.1 H Lymph % (Auto) 6.5 L Lymph # (Auto) 1.07 L Immature Gran # 0.19 H Absolute Neutrophils 14.72 H POC VBG pH POC VBG pCO2 at Temp POC VBG pO2 POC VBG HCO3 POC VBG Total CO2 POC Venous O2 Sat POC VBG Base Excess VBG Lactic Acid Carbon Dioxide POC Glucose 129 H Calcium POC WB Ioniz Calcium 1.07 L C-Reactive Protein Procalcitonin IgA 460 H 07/24/22 07/24/22 12:00 11:45 WBC RBC Hgb Hct Immature Gran % (Auto) Neut % (Auto) Lymph % (Auto) Lymph # (Auto) Immature Gran # Absolute Neutrophils POC VBG pH POC VBG pCO2 at Temp 36.9 L POC VBG pO2 POC VBG HCO3 POC VBG Total CO2 POC Venous O2 Sat 76.0 H POC VBG Base Excess VBG Lactic Acid 3.4 H Carbon Dioxide POC Glucose Calcium POC WB Ioniz Calcium C-Reactive Protein Procalcitonin 4.15 H IgA Meds: Medications Acetaminophen (Acetaminophen 325 Mg Tablet) 1,000 mg PO Q8H [facility]; Protocol Last Admin: 07/26/22 08:04 Dose: 1,000 mg Albuterol/Ipratropium (Ipratropium/Albuterol 3 Ml Ampul.Neb) 3 ml NEB Q6HP [facility] Last Admin: 07/26/22 08:19 Dose: 3 ml Benzonatate (Benzonatate 100 Mg Capsule) 100 mg PO BIDP PRN PRN Reason: Cough Last Admin: 07/24/22 18:08 Dose: 100 mg Budesonide (Budesonide 0.5 Mg/2 Ml Ampul.Neb) 0.5 mg NEB Q12 [facility] Last Admin: 07/26/22 08:20 Dose: 0.5 mg Cefepime HCl (Cefepime 2 Gm Vial) 2 gm IV Q8H [facility]; Protocol Last Admin: 07/26/22 11:31 Dose: 2 gm Docusate Sodium (Docusate Sodium 100 Mg Capsule) 100 mg PO BID [facility] Last Admin: 07/26/22 08:05 Dose: 100 mg Enoxaparin Sodium (Enoxaparin 40 Mg/0.4 Ml Syringe) 40 mg SQ DAILY [facility] Last Admin: 07/26/22 08:05 Dose: 40 mg Guaifenesin (Guaifenesin/Dextromethorphan 5ml Ud Cup) 10 ml PO Q4HP PRN PRN Reason: Cough Vancomycin HCl 500 mg/ Sodium (Chloride) 100 mls @ 100 mls/hr IV Q12H [facility] Last Infusion: 07/26/22 12:39 Dose: Infused Ondansetron HCl (Ondansetron 4 Mg/2 Ml Vial) 4 mg IV Q6HP PRN PRN Reason: Nausea And Vomiting Senna (Sennosides 1 Tablet) 2 tab PO HS [facility] Last Admin: 07/25/22 20:22 Dose: Not Given Sodium Chloride (0.9 % Sodium Chloride 10 Ml Syringe) 10 ml IV Q8 [facility] Last Admin: 07/26/22 12:15 Dose: 10 ml Vancomycin HCl (Vancomycin Per Pharmacy) 1 order IV UD [facility]; Protocol A/P Assessment and plan (1) Sepsis: Status: Acute (2) Community acquired pneumonia: Status: Acute Narrative A/P Narrative: The patient's presentation is consistent with sepsis as she is tachycardic, slightly hypotensive with an elevated white blood cell count of 17,000. Of note there is evidence of lactic acidosis. She was found to have a lactic acid of 3.0. Imaging confirmed left lower lobe pneumonia. Blood cultures are pending. VBG was concerning for hypoxemia. When I evaluated her in the ER, her O2 sat was around 86% on ambient air. We will start supplemental O2, and with a history of obstructive lung disease, start duo nebs and Pulmicort. For her pleuritic chest pain, we will continue standing dose acetaminophen and Toradol. Her home antihypertensives which include losartan will be held. 07/25: The patient's white blood cell count has gone up slightly to 18.9. CRP is elevated at 28.8. Lactic acid has come down to 2.6. Her blood pressure was 89/66 this morning and she received an LR bolus. We will repeat her lactic acid. Continue antibiotic therapy as above. 07/26: Because the patient's white blood cell count remains elevated at 17.9 and she had low-grade temperatures, I had reviewed the CT findings with radiologist and there is no obvious concern for postobstructive pneumonia. The posterior bronchus was open. I spoke with the gate supervisor at [place] who states that we should touch base with him tomorrow as if there is no significant improvement within 72 hours she may benefit from a bronchoscopy. I escalated her antibiotic regimen to cefepime and vancomycin in case it is postobstructive as infection could be polymicrobial. Time Spent With Patient Time: Total time spent is greater than 50% in coordination of care (as documented) at patient's floor/unit and/or counseling patient: Subsequent: Total time with patient: 25 - 34 minutes QUALITY VTE Deep Vein Thrombosis/Pulmonary Embolism Present on Admission: No
[2022-07-26] MEDS: SENNOSIDES 1 TABLET PO SCH (23:10)
[2022-07-27] MEDS: CEFEPIME 2 GM VIAL IV SCH (05:11)
[2022-07-27] MEDS: 0.9 % SODIUM CHLORIDE 10 ML SYRINGE IV SCH (05:12)
[2022-07-27 06:50] LABS: Basophils # (Auto) 0.03 K/mcL (0.00-0.30); Basophils % (Auto) 0.3 % (0.0-2.0); Eosinophils # (Auto) 0.29 K/mcL (0.00-0.70); Eosinophils % (Auto) 2.9 % (0.0-7.0); Lymphocytes # (Auto) 2.03 K/mcL (1.50-4.80); Mean Cell Volume 89.8 fL (80.0-100.0); Mean Corpuscular HGB Conc 34.5 g/dL (31.0-36.0); Mean Platelet Volume 10.2 fL (8.8-12.5); Monocytes # (Auto) 0.44 K/mcL (0.10-0.90); Monocytes % (Auto) 4.3 % (1.0-12.0); Neutrophils % (Auto) 71.7 % (38.0-78.0); Platelet Count 237 K/mcL (140-440); RBC 3.23 M/mcL (3.59-5.38); Red Cell Distribution Width 12.6 % (11.5-14.5); WBC 10.1 K/mcL (4.5-11.0)
[2022-07-27] MEDS: ENOXAPARIN 40 MG/0.4 ML SYRINGE SQ SCH (08:09)
[2022-07-27] MEDS: DOCUSATE SODIUM 100 MG CAPSULE PO SCH (08:09)
[2022-07-27] MEDS: BUDESONIDE 0.5 MG/2 ML AMPUL.NEB NEB SCH (08:14)
[2022-07-27] MEDS ORDERED: ACETAMINOPHEN 500 MG TABLET PO SCH (08:15)
[2022-07-27] MEDS: VANCOMYCIN 500 MG in 0.9 % SODIUM CHLORIDE 100 ML IV SCH (08:36)
[2022-07-27] MEDS: ACETAMINOPHEN 325 MG TABLET PO SCH (08:40)
--- NOTE | 2022-07-27 10:36 | Discharge Summary ---
Discharge Provider Provider IMPORTANT FOLLOW-UP INFORMATION FOR PCP: 1. F/u with PCP 2. Complete 7 days of antibiotics 3. F/u chest x ray in 3-4 weeks Patient information: Note initiated : 07/27/22 at 10:34 am Service Date, if different from initiated Date: [] Patient: Charley Batista 51 y/o F admitted on 07/24/22 for Pneumonia. Chief Complaint: [Pleuritic CP] Date of admission: 07/24/22 15:37 Discharge date: 07/27/22 Consults: 07/24/22 13:31 Consult to Physician [CONS] Stat Comment: Consulting Provider: Silvia Wong Reason For Exam: Physician to Consult Attending physician on discharge: Silvia Wong COURSE Hospital Course Hospital course: Assessment and plan (1) Sepsis: Status:Acute (2) Community acquired pneumonia: Status:Acute Narrative A/P Narrative: The patient's presentation is consistent with sepsis as she is tachycardic, slightly hypotensive with an elevated white blood cell count of 17,000. Of note there is evidence of lactic acidosis. She was found to have a lactic acid of 3.0. Imaging confirmed left lower lobe pneumonia. Blood cultures are pending. VBG was concerning for hypoxemia. When I evaluated her in the ER, her O2 sat was around 86% on ambient air. We will start supplemental O2, and with a history of obstructive lung disease, start duo nebs and Pulmicort. For her pleuritic chest pain, we will continue standing dose acetaminophen and Toradol. Her home antihypertensives which include losartan will be held. 07/25: The patient's white blood cell count has gone up slightly to 18.9. CRP is elevated at 28.8. Lactic acid has come down to 2.6. Her blood pressure was 89/66 this morning and she received an LR bolus. We will repeat her lactic acid . Continue antibiotic therapy as above. 07/26: Because the patient's white blood cell count remains elevated at 17.9 and she had low-grade temperatures, I had reviewed the CT findings with radiologist and there is no obvious concern for postobstructive pneumonia. The posterior bronchus was open. I spoke with the dough molder at [place] who states that we should touch base with him tomorrow as if there is no significant improvement within 72 hours she may benefit from a bronchoscopy. I escalated her antibiotic regimen to cefepime and vancomycin in case it is postobstructive as infection could be polymicrobial. 07/27: The patient's blood pressure has finally improved and white blood cell count is normalized to 10.1. She will be discharged on Levaquin and doxycycline for polymicrobial coverage and complete 7 days total of antibiotics. She should have a follow-up x-ray in 3 to 4 weeks. If there is residual pneumonia, she may benefit from CT scan and follow-up with pulmonology. Her initial evaluation for immunodeficiency was unrevealing as her immunoglobulin levels were within normal limits. Discharge diagnosis: Left lobar pneumonia, hypotension Time spent discussing smoking cessation with patient: more than 10 minutes Time Spent with Patient Time attestation: Total time spent providing and/or coordinating discharge services: Time spent: Greater than 30 minutes EXAM Constitutional Vitals: Temp Pulse Resp BP Pulse Ox O2 Del Method O2 Flow Rate 98.1 F 76 18 136/90 97 Room Air 0 07/27/22 08:40 07/27/22 07:49 07/27/22 07:49 07/27/22 07:49 07/27/22 07:49 07/27/22 07:49 07/25/22 20:00 General appearance: average body habitus Head Head exam: Present atraumatic, normal inspection and normocephalic Eye Eye exam: Present EOMI, normal appearance and PERRL; Absent conjunctival injection ENT ENT exam: Present normal exam; Absent mucous membranes dry Neck Neck exam: Present full ROM; Absent lymphadenopathy Respiratory Respiratory exam: Present normal respiratory exam and CTAB; Absent decreased breath sounds, respiratory distress or wheezes Cardiovascular Cardiovascular exam: Present normal rate and rhythm and RRR; Absent JVD GI/Abdominal GI/Abdominal exam: Present normal bowel sounds and soft; Absent diminished bowel sounds, distended, guarding, mass, rebound or tenderness Neurological Exam Neurological exam: Present alert, CN II-XII intact and oriented X3 Psychiatric Psychiatric exam: Present normal affect and normal mood Skin Skin exam: Present intact and warm; Absent erythema, pallor, petechiae or rash Discharge Data Data Completed and Pending Labs on day of discharge: Labs from last 24 hours 07/27/22 07/27/22 08:02 05:18 WBC 10.1 RBC 3.23 L Hgb 10.0 L Hct 29.0 L MCV 89.8 MCH 31.0 MCHC 34.5 RDW 12.6 Plt Count 237 MPV 10.2 Immature Gran % (Auto) 0.8 H Neut % (Auto) 71.7 Lymph % (Auto) 20.0 [place] % (Auto) 4.3 Eos % (Auto) 2.9 Baso % (Auto) 0.3 Lymph # (Auto) 2.03 [place] # (Auto) 0.44 Eos # (Auto) 0.29 Baso # (Auto) 0.03 Immature Gran # 0.08 H Absolute Neutrophils 7.26 Vancomycin Trough 4.5 Preliminary micro results at discharge 07/24/22 12:04 Blood Culture - Preliminary Blood 07/24/22 11:59 Blood Culture - Preliminary Blood Discharge Plan Patient/Caregiver Discharge Instructions Activity: increase activity as tolerated Prescriptions: New levofloxacin 750 mg tablet 750 mg PO Q24H 4 Days Qty: 4 0RF doxycycline hyclate 100 mg capsule 100 mg PO BID 4 Days Qty: 8 0RF Continued albuterol sulfate [Ventolin HFA] 90 mcg/actuation HFA aerosol inhaler 90 mcg INHALATION PRN PRN (Reason: athsma) Patient Comments: [NO ORIGINAL SIG] sertraline 25 mg Tablet 25 mg PO QDAY Discontinued losartan 100 mg Tablet 100 mg PO QDAY Follow Up Plan Follow up with: Junior Baig MD [Physician] - Patient Disposition: Home, Self-Care I certify that the patient requires SNF services: No Overall status at discharge: patient is progressing back to baseline Discharge Orders: Discharge Order (Routine); Ordered 07/27/22 Ordered By: Silvia RHOADES VTE Deep Vein Thrombosis/Pulmonary Embolism Present on Admission: No
== END 2022-07-27 12:24 | disposition home or self-care (01) | DRG 871 ==
LOC: ED 10:57 → MEDSUR 15:37
PROVIDERS: ADMIT Student in an Organized Health Care Education/Training Program; ATTEND Student in an Organized Health Care Education/Training Program